=== PATIENT | male | born 1995 | race Hispanic/Latino ===

== ENCOUNTER 2016-11-14 09:24 | Day surgery (SDC) | payer MEDICAID ==
[2016-11-13 14:54] VITALS: BMI 34.7
[2016-11-14] MEDS ORDERED: Lactated Ringer's 1,000 ML IV ONE ×2 (10:07→13:20)
--- NOTE | 2016-11-14 10:07 | CP.SDSHP ---
Same Day Surgery H & P - History Proposed Procedure: L ankle arthroscopy, brostrom ruffin Pre-Op Diagnosis: Left ankle instability + pain - Previous Medical/Surgical History Pain: 0. No Pain (No pain currently, however experiences pain with long periods of ambulation) Previous Surgical History: Tonsilectomy - Allergies Allergies: Allergies No Known Allergies Allergy (Verified 11/13/16 14:54) - Current Medications Current Medications: None - Physical Exam Vital Signs: Vital Signs 11/14/16 11/14/16 09:46 09:49 Temperature 99.1 F Pulse Rate 83 83 Respiratory 20 Rate Blood Pressure 144/89 O2 Sat by Pulse 99 Oximetry Mental Status: Alert & Oriented x3 Neuro: WNL Heart: WNL Lungs: WNL GI: WNL - {Optional Preform as Required} Integument: Other (Nonpitting edema to left ankle) Ortho: WNL - Impression Impression: Pt was seen and examined in SDS. Pt NPO status was confirmed. All Pre-op testing and clearance was in the chart. Pt has exhausted all conservative treatment at this time and is opting for surgical intervention. Pt was explained procedure and post-operative course. All pt's questions were answered to satisfaction. No guarantees were made. Pt understands all risks, benefits and complications of procedure. Pt will follow-up with Dr. Banuelos Pt. Evaluated Today:Candidate for Anesthesia & Procedure: Yes - Date & Time Date: 11/14/16 Time: 10:07 Short Stay Discharge - Short Stay Discharge Admitting Diagnosis/Reason for Visit: M19.272/M25.372 Disposition: HOME/ ROUTINE Referrals: Gretel López MD [Primary Care Provider] - Follow-up: Follow up with Dr. Banuelos in office this 11/17/16 Instructions: RICE Therapy (GEN), Hydrocodone/Acetaminophen (By mouth), Cephalexin (By mouth), Ibuprofen (By mouth) Progress Note/Discharge Note with Instructions: Patient in good/stable condition for discharge home. Pt to resume medications per medical reconciliation. Resume regular diet. Please keep dressing clean, dry, & intact to surgical site, use plastic bag over bandage for showering, use crutches and do not bear weight on left leg when walking, call clinic if you see signs of infection (redness, swelling, malodor), please make an appointment to see Dr. Banuelos in office this November 17 for post-op check.
--- NOTE | 2016-11-14 10:08 | CP.PCM.PN ---
Subjective - Date & Time of Evaluation Date of Evaluation: 11/14/16 Time of Evaluation: 10:07 - Subjective Subjective: Podiatry Progress Note - Dr. Bnauelos 21 year old male patient unremarkable PMHx seen in [facility] for pre-operative evaluation for left ankle arthroscopy + lateral ankle stabilization by Dr. Banuelos today. Patient has been experiencing pain + instability for the past 7 months. Patient denies any pain currently, however admits he feels pain after long periods of ambulation. Patient has exhausted conservative treatment at this time and now opts for surgical intervention. NPO status confirmed. Patient is NAD and AAOx3. Patient denies N/V/F/D/C/SOB. Offers no other pedal complaints at this time. Objective - Vital Signs/Intake and Output Vital Signs (last 24 hours): Temp Pulse Resp BP Pulse Ox 99.1 F 83 20 144/89 99 11/14/16 09:46 11/14/16 09:49 11/14/16 09:46 11/14/16 09:46 11/14/16 09:46 - Constitutional Appears: Well, Non-toxic, No Acute Distress - Extremities Exam Additional comments: VASC: DP and PT pulses palpable 2/4 b/l. CFT <3 seconds to all digits x10. Non- pitting edema noted to lateral left ankle. Hair growth appreciated. TG warm to warm b/l. NEURO: Gross sensation intact bilaterally. DERM: No open lesions noted. ORTHO: No pain on palpation noted. Biomechanical exam: Patient presents to [facility] with a normal gait to left side. Hip ROM external vs. internal 1:1 bilateral with no crepitus noted. Femur appears to be in neutral position bilateral. Knee in neutral position with no recurvatum noted. Tibia in neutral position bilateral. Ankle joint dorsiflexion less than 10 degrees with the knee extended and greater than 10 degrees with the knee flexed bilateral, with no crepitus noted. STJ ROM 20 degrees inversion to RLE, greater than 20 degrees to LLE. Resting calcaneal stance position is 4 degrees everted with neutral calcaneal stance position 0 degrees bilateral. MTJ and TNJ ROM within normal limits in a congruent position; position appears to be flexible b/l. Forefoot appears to be perpendicular to the rearfoot bilateral. First ray DF/PF normal however is in a plantarflexed position b/l. 1st MPJ ROM greater than 65 degrees bilateral and is in a rectus position with no crepitus noted b/l. Metatarsal position is neutral 1-5 b/l. Lesser digits 2- 5 b/l are all rectus and in a flexible position. - Neurological Exam Neurological Exam: Alert, Awake, Oriented x3 - Psychiatric Exam Psychiatric exam: Normal Affect, Normal Mood Assessment and Plan - Assessment and Plan (Free Text) Assessment: 21 year old male unremarkable PMHx with left lateral ankle instability Plan: Pt NPO status was confirmed All Pre-op testing and clearance was in the chart Pt has exhausted all conservative treatment at this time and is opting for surgical intervention Pt was explained procedure and post-operative course All pt's questions were answered to satisfaction No guarantees were made Pt understands all risks, benefits and complications of procedure Pt will follow-up with Dr. Banuelos in office
[2016-11-14] MEDS ORDERED: Bupivacaine 0.5% Inj(30mL) IJ ONE ×2 (10:37→13:50)
[2016-11-14] MEDS ORDERED: Lidocaine 1% Inj (20ml) IJ ONE (10:37)
[2016-11-14] MEDS ORDERED: ceFAZolin 2 GM in Sodium Chloride 0.9% 100 ML IVPB ONE (10:41)
[2016-11-14] MEDS ORDERED: Sodium Chloride 0.9% 500 ML IV SCH (10:45)
[2016-11-14] MEDS ORDERED: Midazolam 2 MG/2 ML VIAL ONE (11:48)
[2016-11-14] MEDS ORDERED: Bupivacaine 0.5% Inj(30mL) ONE (11:48)
[2016-11-14] MEDS ORDERED: Propofol 10 mg/ml Inj (20 ML) ONE (11:48)
[2016-11-14] MEDS ORDERED: Succinylcholine 200 mg/10 ml Inj IV ONE (11:49)
[2016-11-14] MEDS ORDERED: Vecuronium 10 mg Inj ONE (11:49)
[2016-11-14] MEDS ORDERED: Lidocaine 2% PF (10 ml) Amp ONE (11:49)
[2016-11-14] MEDS ORDERED: SODIUM CHLORIDE 3,000 ML IR ONE (12:10)
[2016-11-14] MEDS ORDERED: Sodium Chloride 0.9% 200 ML IV ONE (12:15)
[2016-11-14] MEDS ORDERED: SENSORCAINE 0.5% W/EPINEPHRINE 50ML MDV IJ ONE (12:20)
[2016-11-14] MEDS ORDERED: Rocuronium 10 mg/ml (5 ml) ONE (12:58)
[2016-11-14] MEDS ORDERED: Bupivacaine HCl 0.5% PF (30 ml) Inj ONE (13:53)
[2016-11-14] MEDS ORDERED: Triamcinolone Acetonide 40 mg/mL Inj ONE (13:59)
[2016-11-14] MEDS ORDERED: Neostigmine Methylsulfate 2 MG/2 ML ML IV ONE (14:03)
--- NOTE | 2016-11-14 14:29 | PCM.SURG1 ---
Surgeon's Initial Post Op Note - Surgeon's Notes Surgeon: Dr. Banuelos Traffic Engineering Technician: Dr. Harvey PGY2, Dr. Schreiber PGY3, Dr. Townsend PGY1 Type of Anesthesia: General Endo Anesthesia Administered By: Dr. Carrillo Pre-Operative Diagnosis: DJD left ankle, ATFL & CFL tear, edema Operative Findings: See operative report. materials: [place] Alison-anchor (2.5 x 10mm); Allowrap 2x2 cm 2-0 force fiber; 4-0 vicryl; 3-0 prolene. Injectables : 20cc 0.5% marcaine, 1cc Kenalog Post-Operative Diagnosis: Same as above Operation Performed: Left ankle arthroscopy + brostrom ruffin, application of Allowrap Specimen/Specimens Removed: None Estimated Blood Loss: EBL {In ML}: 1 Blood Products Given: N/A Drains Used: No Drains Post-Op Condition: Good Date of Surgery/Procedure: 11/14/16 Time of Surgery/Procedure: 14:30
[2016-11-14] MEDS ORDERED: Oxycodone/Acetaminophen 5/325 mg Tab PO PRN ×2 (14:31)
[2016-11-14] MEDS ORDERED: HYDROmorphone 0.5 mg/0.5 ml ISec IVP PRN (14:32)
--- NOTE | 2016-11-14 14:36 | PCM.ANESB2 ---
Popliteal Nerve Block - Popliteal Nerve Block Date of Procedure: 11/14/16 Anesthesiologist: anai Procedure Performed: Popliteal Nerve Block Left - Procedure Popliteal Nerve Block: This procedure was explained to the patient that it is for post-operative pain management. Consent was obtained after a thorough discussion with the patient regarding the benefits and possible complications of local anesthetic block of the sciatic nerve at the popliteal level. The patient was brought to the operating room and standard monitors are applied. After completion of primary anesthetic and procedure, Time-out was held with the circulating nurse to confirm the appropriate block. Continuing under general anesthesia, the patient' s operative leg was gently raised and supported and the groove in between the biceps femoris and vastus lateralis muscles was carefully palpated. The skin approximately 8cm above the popliteal crease was then marked. The ultrasound transducer was then applied to the posterior thigh approximately 8cm above the popliteal crease in the transverse plane and the sciatic nerve before its division was visualized lateral to the popliteal artery and in between the bicep femoris and semimembranosus/semitendinosus muscles. After identification, the lateral portion of the thigh was prepped with Betadine solution three times. At this point, a # 21 gauge Stimuplex insulated 4 inch needle was inserted into pre-marked area and advanced in a perpendicular direction. The needle was inserted above the ultrasound transducer in-plane towards the sciatic nerve in a [id number] direction. Needle advancement was performed carefully under direct ultrasound visualization. After repeated negative aspiration, __18___cc of ____.5_ % ___bupivicaine was injected; Under ultrasound guidance the local anesthetics were observed surrounding sciatic nerve . The needle was removed intact and sterile dressing was applied. The patient tolerated the popliteal nerve block well with stable vital signs, was then extubated and transfered to PACU with stable vital signs.
[2016-11-14] MEDS ORDERED: Lactated Ringer's 1,000 ML IV SCH (14:45)
[2016-11-14 16:22] VITALS: RESP 18; O2SAT 100
[2016-11-14 17:19] VITALS: BP 130/73; PULSE 80; TEMP 97.8
--- NOTE | 2016-11-15 10:55 | PCM.OP ---
Operative Report - Operative Report Date of Surgery/Procedure: 11/14/16 Time of Surgery/Procedure: 12:40 Surgeon: Dr. Banuelos, DPM Director [place]: Maryan sanders PGY-2, Ramy Schreiber PGy-3, Kayden Townsend PGy-1 Anesthesia/Sedation: General LMA, Local and Regional block Pre-Operative Diagnosis: #1: LEFT ankle degenerative joint disease. #2: LEFT lateral ankle instability involving tear of ATFL (Anterior Talo Fibular Ligament ) and CFL (Calcaneofibular Ligament). #3: LEFT ankle edema Post-Operative Diagnosis: #1: LEFT ankle degenerative joint disease. #2: LEFT lateral ankle instability involving tear of ATFL (Anterior Talo Fibular Ligament ) and CFL (Calcaneofibular Ligament). #3: LEFT ankle edema Indication for Surgery: The patient is a 21 year-old male with the above diagnoses. The patient has exhausted conservative treatment at this time and now requests surgical intervention. The patient signed the consent after careful explanation of risks, benefits, complication and alternatives for surgical procedure. No guarantees were given nor implied. 2 grams of ancef IV were given to the pt hour prior to the procedure. NPO status was confirmed prior to taking pt to the OR. Operative Findings: Preparation: The patient was brought to the operating room and placed on the operating room table in supine position. A well-padded pneumatic thigh tourniquet was placed to the patient's LEFT thight. Once general anesthesia was achieved, the LEFT lower extremity was then prepped and draped in usual sterile manner. Esmarch was utilized to exsanguinate the patient's LEFT foot and ankle. Pneumatic ankle tourniquet was then inflated to 350 mmHg and procedure began. Procedure/Operation Description: #1: LEFT ankle arthroscopy. #2: LEFT ankle lateral ankle stabilization using [place] [employer]. #3: LEFT lateral ankle allograft placement (Allowrap DS 2cm x 2cm). #1: LEFT ankle arthroscopy. Attention was then directed to the dorsal aspect of the patients LEFT ankle where the ankle was infiltrated with approximately 20 cc of 0.5% Marcaine with epinephrine. Next utilizing a surgical marking pen, anatomical landmarks were marked such as the tibialis anterior tendon and the medial and lateral gutters were identified. Next utilizing a #15 blade, a medial portal was created. Utilizing a hemostat down to the level of ankle joint, the ankle joint was then entered with a trochar. Next, the 2.7 scope was inserted into the medial portal. There was an abundance of hypertrophic synovium as well as fibrous bands within the lateral aspect of ankle joint. Next, a lateral portal was created utilizing a #15 blade and hemostat down to the level of the ankle joint. Next a trocar was placed into the lateral portal and triangulated along with the 2.7 scope. Next, a 3.5 aggressive shaver was inserted into the lateral ankle portal and dbridement of the hypertrophic synovium and. fibrous bands began. The ankle joint was inspected for any osteochondral defect. No visible osteochondral defect was noted or denudation of the cartilage on the talus. The 2.7 scope and a 3.5 aggressive shaver were removed from each portal. The ankle joint was then flushed with copious amounts of sterile normal saline. The skin was reapproximated and coapted utilizing #5-0 prolene in simple suture technique. #2: LEFT ankle lateral ankle stabilization. Attention was directed to the lateral aspect of the LEFT ankle joint overlying where the anterior talofibular ligament is located. A curvilinear incision was created overlying the ATFL and CFL location starting at the level of the lateral gutter of the ankle joint. The incision was carried through subcutaneous tissues with care being taken to identify all vital neurovascular structures; all bleeders were cauterized and ligated as necessary. Utilizing a #15 blade, the capsular structures were incised in a vertical fashion overlying the roof of the sinus tarsi. Once the capsular structures were incised, it was noted that the ATFL and CFL were completely ruptured at the distal portion where it inserts onto the talus with very few fibers intact. At this time, the ankle joint was inverted and the articular cartilage and lateral gutter were inspected for any osteochondral lesions and none were noted. The ankle joint was completely irrigated. Next, a drill bit from the [employer] lateral ankle stabilization set was utilized to create two drill holes in the rain-lateral aspect of the distal fibular, 4mm apart from each other. Then, Two 2.0mm [employer] [place] [employer] made of polymer were placed in the drill holes created. The sutures from distal anchor were then fed through the remaining fibers of the anterior talofibular ligament and the capsular structures in an [id number] suture fashion. Next, the sutures from proximal anchor were then fed through the Calcaneofibular ligament fibers in an over and over suture fashion. While performing this technique, the foot was placed in dorsiflexed and everted position as the sutures were tied down which allowed reapproximation and tightening of the ATFL as well as CFL. The ankle was stressed in eversion and inversion with excellent stability noted. The incision site was irrigated with copious amount of the normal sterile saline. #3: LEFT lateral ankle allograft placement (Allowrap DS 2cm x 2cm). Next, a sheet of allograft was prepared with area measuring 2cm x 2cm. This was layed flat over the site of CFL repair, distal to the left distal fibula. The capsule was then reapproximated with #3- 0 Vicryl, the subcutaneousn tissues were reapproximated with #4-0 Vicryl and skin was reapproximated with #4-0 Prolene. Then, 20cc of Marcaine plain was injected to Left foot to block saphenous nerve at the level of ankle. 2cc of Kenelog 40 was injected into the LEFT ankle joint. LEFT foot was dressed with Xeroform, 4x4, cling. The Left lower extremity was applied with webril, posterior splint and LUDWIG. Next, by the anesthesiologist, regional popliteal block was given to LEFT lower extremity in the operating room. The attending was present during the case. Estimated Blood Loss: 10cc Complications: None Discharge & Condition: The patient tolerated the anesthesia and procedure well and was escorted to the recovery room with vital signs stable and neurovascular status intact to the LEFT foot. This patient will follow up with
== END 2016-11-14 17:20 | disposition home or self-care (01) ==
LOC: H.OPSURG 09:24
PROVIDERS: ATTEND Podiatrist Foot & Ankle Surgery
DX: M25.372 Other instability, left ankle (principal); M19.072 Primary osteoarthritis, left ankle and foot; E66.9 Obesity, unspecified; M25.572 Pain in left ankle and joints of left foot
CPT/HCPCS: 29895; 29899; 97161; G8978; G8979; G8980; J0330; J0690; J2250; J2405; J2704; J2710; J3010; J3301; J7120